=== PATIENT | female | born 1990 | race Caucasian/White ===

== ENCOUNTER 2018-11-26 14:48 | Observation (INO) | payer MEDICAID, SELFPAY ==
[2018-11-26 15:00] VITALS: BP 116/70; PULSE 72; RESP 18; TEMP 36.8; O2SAT 98
--- NOTE | 2018-11-26 15:09 | PCM.HP.STD ---
Problem List (1) Heroin withdrawal Status: Acute History of Present Illness Date of Admission: 11/26/18 Chief Complaint: Abdominal cramps, nausea and vomiting. The patient is a 28 year old F who uses heroin via injection. Last use was at 1900 on November 25. Since then, patient has been having diffuse myalgias, yawning, rhinitis, lacrimation, sore throat, abdominal cramps, nausea and vomiting. Patient requesting treatment for acute heroin withdrawal. She presented through [facility] and had an intake CINA score of 18. Patient had done a program earlier and was clean for period time until her sister went to live with her. The patient's sister used heroin and the patient unfortunately fell back to using heroin again. Patient states that she does share needles on his previous been checked for HIV and hepatitis C that were negative previously. 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 Review of Systems Constitutional: Reports: Chills, Malaise, Weight Change - Patient thinks that she is lost weight but does not know the quantity.. Denies: Anorexia, Fever, Night Sweats Eyes: Denies: Blurred vision, Double vision HEENT: Denies: Head Aches, Sinus Congestion, Sinus Drainage Cardiovascular: Denies: Chest Pain, Palpitations Respiratory: Denies: Cough, Shortness of breath at rest, Sputum production Gastrointestinal: Reports: Abdominal Pain, Diarrhea, Nausea, Vomiting Genitourinary: Denies: Dysuria Gynecological: Reports: - - Menstrual period 1 week ago. Musculoskeletal: Reports: Arm Pain, Leg Pain Skin: Denies: Dryness, Jaundice Neurological: Denies: Blurred vision, Double vision, Focal weakness, Numbness, Tingling Psychiatric: Denies: Anxiety, Depression Hematologic/ Lymphatic: Denies: Easy Bruising, Easy Bleeding, Hx of blood clot VTE Information - Inpt Only VTE Present on Admission: No VTE Mechan Device Prophylaxis: None VTE Pharm Prophylaxis ordered?: No Reason prophylaxis not ordered:: Treatment Not Indicated Patient Problems: Active and Suspected Problems Heroin withdrawal (Acute) - Physical Exam General: Alert, Cooperative, No apparent distress HEENT: Atraumatic, Normocephalic, - - No scleral icterus Oral: Moist Mucosa, No Gingival or Mucosal Lesions/ Ulcerations Neck: No Nodes, Thyroid Normal Size and Texture Lungs: Clear to auscultation, Normal air movement, No rhonchi, No wheeze Cardiovascular: Regular rate, Regular Rhythm, Normal S1, Normal S2, No murmurs Abdomen: Bowel Sounds Present, Soft, Non Tender, Non-Distended, No Hepato-splenomegaly Extremities: No edema, No Calf Tenderness Skin: No rashes, No breakdown, - - Some small injection sites but without any erythema nor any cellulitis. Musculoskeletal: No Tenderness to Palpation of Joints or Extremities, Cachexia, Muscle Wasting Psych/Mental Status: Appropriate, Anxious Assessment/Plan All Active Problems Heroin withdrawal (Acute) 1. Acute heroin withdrawal: Patient had intake CINA of 18. Patient will be initiated on the medical stabilization protocol with buprenorphine taper. The taper will take her through the . After which, patient has a program that she is going to be enrolled in. Patient will have other medications to help with other somatic complaints. I did discuss getting an HIV and hepatitis C tests as she shares needles and she was in agreement to do so. Code Visit Inpatient E&M: 90548 Init Hosp L2
--- NOTE | 2018-11-26 15:14 | HP.PCM_ITS ---
Problem List (1) Heroin withdrawal Status: Acute History of Present Illness Date of Admission: 11/26/18 Chief Complaint: Abdominal cramps, nausea and vomiting. The patient is a 28 year old F who uses heroin via injection. Last use was at 1900 on November 25. Since then, patient has been having diffuse myalgias, yawning, rhinitis, lacrimation, sore throat, abdominal cramps, nausea and vomiting. Patient requesting treatment for acute heroin withdrawal. She presented through [facility] and had an intake CINA score of 18. Patient had done a program earlier and was clean for period time until her sister went to live with her. The patient's sister used heroin and the patient unfortunately fell back to using heroin again. Patient states that she does share needles on his previous been checked for HIV and hepatitis C that were negative previously. 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 Review of Systems Constitutional: Reports: Chills, Malaise, Weight Change - Patient thinks that she is lost weight but does not know the quantity.. Denies: Anorexia, Fever, Night Sweats Eyes: Denies: Blurred vision, Double vision HEENT: Denies: Head Aches, Sinus Congestion, Sinus Drainage Cardiovascular: Denies: Chest Pain, Palpitations Respiratory: Denies: Cough, Shortness of breath at rest, Sputum production Gastrointestinal: Reports: Abdominal Pain, Diarrhea, Nausea, Vomiting Genitourinary: Denies: Dysuria Gynecological: Reports: - - Menstrual period 1 week ago. Musculoskeletal: Reports: Arm Pain, Leg Pain Skin: Denies: Dryness, Jaundice Neurological: Denies: Blurred vision, Double vision, Focal weakness, Numbness, Tingling Psychiatric: Denies: Anxiety, Depression Hematologic/ Lymphatic: Denies: Easy Bruising, Easy Bleeding, Hx of blood clot VTE Information - Inpt Only VTE Present on Admission: No VTE Mechan Device Prophylaxis: None VTE Pharm Prophylaxis ordered?: No Reason prophylaxis not ordered:: Treatment Not Indicated Patient Problems: Active and Suspected Problems Heroin withdrawal (Acute) - Physical Exam General: Alert, Cooperative, No apparent distress HEENT: Atraumatic, Normocephalic, - - No scleral icterus Oral: Moist Mucosa, No Gingival or Mucosal Lesions/ Ulcerations Neck: No Nodes, Thyroid Normal Size and Texture Lungs: Clear to auscultation, Normal air movement, No rhonchi, No wheeze Cardiovascular: Regular rate, Regular Rhythm, Normal S1, Normal S2, No murmurs Abdomen: Bowel Sounds Present, Soft, Non Tender, Non-Distended, No Hepato- splenomegaly Extremities: No edema, No Calf Tenderness Skin: No rashes, No breakdown, - - Some small injection sites but without any erythema nor any cellulitis. Musculoskeletal: No Tenderness to Palpation of Joints or Extremities, Cachexia, Muscle Wasting Psych/Mental Status: Appropriate, Anxious Assessment/Plan All Active Problems Heroin withdrawal (Acute) 1. Acute heroin withdrawal: Patient had intake CINA of 18. Patient will be initiated on the medical stabilization protocol with buprenorphine taper. The taper will take her through the . After which, patient has a program that she is going to be enrolled in. Patient will have other medications to help with other somatic complaints. I did discuss getting an HIV and hepatitis C tests as she shares needles and she was in agreement to do so. Code Visit Inpatient E&M: 10170 Init Hosp L2
[2018-11-26 15:33] LABS: Absolute Lymphocyte Count 1.12 X10^3/ul (0.83-4.51); Absolute Neutrophil Count 6.1 X10^3/uL (2.0-7.7); Basophil# 0.03 X10^3/uL; Basophil% 0.4 % (0-1); Eosinophil# 0.26 X10^3/uL; Eosinophils% 3.2 % (0-5); Hematocrit 47.1 % (37-47); Hemoglobin 14.9 g/dl (12.0-15.0); Lymphocyte # 1.12 X10^3/ul (4.0); Lymphocyte % 13.7 % (19-41); Mean Corp Hgb Conc 31.6 g/gl (32-36); Mean Corpuscular Hgb 30.4 pg (27.0-32.0); Mean Corpuscular Volume 96.1 fL (81-99); Mean Platelet Vol. 11.6 fl (6.2-12.0); Monocyte# 0.67 X10^3/uL; Monocyte% 8.2 % (0-10); Neutrophil % 74.4 % (47-70); Platelet Count 179 K/mm3 (150-450); RBC Distribution Width CV 13.5 % (11.6-14.6); RBC Distribution Width SD 46.9 fl (35.1-43.9); White Blood Count 8.2 K/mm3 (4.4-11.0)
[2018-11-26 15:39] VITALS: BMI 15.4
[2018-11-26 15:41] VITALS: BMI 15.4
[2018-11-26 15:43] LABS: ALB/GLOB Ratio 1.1 RATIO (0.9-2.4); AST(SGOT) 348 U/L (15-37); Alanine Aminotransfer ALT/SGPT 376 U/L (13-56); Albumin, Serum 3.5 g/dL (3.2-5.0); Alkaline Phosphatase 136 U/L (45-117); Anion Gap 5 (5-15); BUN 9 mg/dL (7-18); BUN/Creat Ratio 13.1 RATIO (10-20); Calcium,Total 8.7 mg/dL (8.5-10.1); Chloride 108 mmol/L (98-107); Creatinine, Serum 0.68 mg/dL (0.55-1.02); EST Glomerular Filtration Rate 108 mL/min (>60); Est Glom Filt Rate - Afr Amer 130 mL/min (>60); Estimated Creatinine Clearance 78.67 ml/min; Globulin 3.3 g/dL (2.2-4.2); Glucose 101 mg/dL (74-106); Potassium 4.1 mmol/L (3.5-5.1); Protein, Total 6.8 g/dL (6.4-8.2); Sodium Level 140 mmol/L (136-145)
[2018-11-26 15:44] LABS: POSITIVE COUNT NO; POSITIVE DIFFERENTIAL NO; POSITIVE MORPHOLOGY NO
[2018-11-26 15:50] VITALS: RESP 18
[2018-11-26 15:58] LABS: Amphetamine Urine VISTA NEGATIVE (<1000 ng/mL); Barbiturate Urine VISTA NEGATIVE (< 200 ng/mL); Benzodiazepine Urine VISTA POSITIVE (< 200 ng/mL); Cocaine Urine VISTA NEGATIVE (< 300 ng/mL); Ecstacy Urine VISTA NEGATIVE (< 500 ng/mL); Methadone Urine VISTA NEGATIVE (< 300 ng/mL); PCP Urine VISTA NEGATIVE (< 25 ng/mL); THC Urine VISTA NEGATIVE (< 50 ng/mL); Vista UDS pH Range 7
[2018-11-26 16:04] LABS: Pregnancy, Serum, hCG Quali. NEGATIVE Negative (0-9 Nonpreg)
[2018-11-26] MEDS: Methocarbamol 750 MG Tablet PO (16:24)
[2018-11-26] MEDS: Ondansetron ODT 4 MG Tablet PO (16:24)
[2018-11-26] MEDS: Dicyclomine 10 MG Capsule 20 MG PO (16:24)
[2018-11-26] MEDS: hydrOXYzine PAM 25 MG Capsule 50 MG PO (16:24)
[2018-11-26] MEDS: Buprenorphine HCl 2 MG TAB.SUBL SL ×2 (16:24→23:18)
[2018-11-26 16:52] LABS: HIV - WCH Non-Reactive (Nonreactive)
[2018-11-26 18:20] VITALS: BP 116/58; PULSE 68; RESP 16; TEMP 36.9
[2018-11-26] MEDS: Pramipexole Di-HCl 0.25 MG Tablet PO (20:13)
[2018-11-26] MEDS: Ibuprofen 600 MG Tablet PO (20:13)
[2018-11-26] MEDS: cloNIDine HCl 0.1 MG Tablet PO (20:14)
[2018-11-26 20:26] VITALS: BP 106/45; PULSE 70; RESP 16; TEMP 37
[2018-11-27 02:00] VITALS: BP 96/44; PULSE 72; RESP 16; TEMP 36.8
[2018-11-27] MEDS: Methocarbamol 750 MG Tablet PO ×4 (02:07→22:36)
[2018-11-27] MEDS: Dicyclomine 10 MG Capsule 20 MG PO ×4 (02:07→22:36)
[2018-11-27] MEDS: hydrOXYzine PAM 25 MG Capsule 50 MG PO ×3 (02:08→22:36)
[2018-11-27 06:00] VITALS: BP 96/41; PULSE 65; RESP 16; TEMP 36.8
[2018-11-27] MEDS: Buprenorphine HCl 2 MG TAB.SUBL SL ×3 (06:39→22:32)
[2018-11-27] MEDS: cloNIDine HCl 0.1 MG Tablet PO ×2 (08:00→17:30)
[2018-11-27 08:04] VITALS: BP 95/57; PULSE 83; RESP 16; TEMP 36.6; O2SAT 99
--- NOTE | 2018-11-27 08:47 | PCM.PN.HOSP ---
Patient Problems: Active and Suspected Problems Heroin withdrawal (Acute) Subjective: She is feeling okay, and her myalgias and rhinitis have improved a little bit but she is not quite back to her baseline. Vitals/I&O's: Vital Signs Temp Pulse Resp BP Pulse Ox 97.9 F 83 16 95/57 L 99 11/27/18 08:04 11/27/18 08:04 11/27/18 08:04 11/27/18 08:04 11/27/18 08:04 Oxygen Delivery Method Room Air Weight: 90 lb Body Mass Index (BMI) 15.4 General: Alert, Oriented x3, Cooperative, No apparent distress HEENT: Atraumatic, PERRLA, EOMI, Normocephalic Oral: Dry Mucosa Neck: Supple, No JVD, Trachea Midline Lungs: Clear to auscultation, Normal air movement, No rhonchi, No wheeze, No rales Cardiovascular: Regular rate, Regular Rhythm, Normal S1, Normal S2, No murmurs Abdomen: Soft, Non Tender, Non-Distended, No Hepato-splenomegaly Extremities: No edema, Capillary Refill Less than 3 Seconds Skin: No rashes, No breakdown Neurological: Neuro grossly intact, Sensory exam intact to light touch and pain Psych/Mental Status: Anxious, - - Shaky Laboratory Results 11/26/18 15:18: WBC 8.2, RBC 4.90, Hgb 14.9, Hct 47.1 H, MCV 96.1, MCH 30.4, MCHC 31.6 L, RDW 13.5, RDW Differential 46.9 H, Plt Count 179, MPV 11.6, Immature Gran % (Auto) 0.100, Neut % (Auto) 74.4 H, Lymph % (Auto) 13.7 L, [place] % (Auto) 8.2, Eos % (Auto) 3.2, Baso % (Auto) 0.4, Absolute Neuts (auto) 6.1, Absolute Lymphs (auto) 1.12, Total Counted Not Reportable 11/26/18 15:18: Sodium 140, Potassium 4.1, Chloride 108 H, Carbon Dioxide 27.0, Anion Gap 5, BUN 9, Creatinine 0.68, Estim Creat Clear Calc 78.67, Est GFR (MDRD) Af Amer 130, Est GFR (MDRD) Non-Af 108, BUN/Creatinine Ratio 13.1, Glucose 101, Calcium 8.7, Total Bilirubin 0.50, AST 348 H, ALT 376 H, Alkaline Phosphatase 136 H, Total Protein 6.8, Albumin 3.5, Globulin 3.3, Albumin/Globulin Ratio 1.1 11/26/18 15:18: Serum , Qual NEGATIVE 11/26/18 15:18: Hepatitis C Ab (EIA) Pending 11/26/18 15:18: HIV 1&2 Antibody Non-Reactive 11/26/18 15:30: Urine Opiates Screen POSITIVE H, Urine Methadone Screen NEGATIVE, Ur Barbiturates Screen NEGATIVE, Ur Phencyclidine Scrn NEGATIVE, Ur Amphetamines Screen NEGATIVE, U Methamphetamin-MDMA NEGATIVE, U Benzodiazepines Scrn POSITIVE H, Urine Cocaine Screen NEGATIVE, U Cannabinoids Screen NEGATIVE, Ur Drug Screen Comment Current Medications Acetaminophen (Tylenol) 500 mg PO Q4H PRN PRN PRN Reason: Temp > 100.4 F Buprenorphine HCl (Buprenorphine Hcl) 4 mg SL Q8H KEATON; Taper Stop: 11/29/18 19:29 Last Admin: 11/27/18 06:39 Dose: 4 mg Clonidine (Catapres) 0.1 mg PO Q2H PRN PRN PRN Reason: Hot/Cold Sweats or Anxiety Last Admin: 11/27/18 08:00 Dose: 0.1 mg Dicyclomine HCl (Bentyl) 20 mg PO Q6H PRN PRN PRN Reason: Abdomnial Discomfort Last Admin: 11/27/18 08:00 Dose: 20 mg Hydroxyzine Pamoate (Vistaril Pamoate Capsule) 50 mg PO Q6H PRN PRN PRN Reason: Mild Anxiety Last Admin: 11/27/18 02:08 Dose: 50 mg Sodium Chloride () 250 mls @ 15 mls/hr IV .[id number] PRN PRN Reason: SALINE FLUSH Ibuprofen (Motrin) 600 mg PO Q8H PRN PRN PRN Reason: Mild-Moderate Pain (1-5/10) Last Admin: 11/26/18 20:13 Dose: 600 mg Loperamide HCl (Imodium) 2 - 4 mg PO UD PRN PRN Reason: LOOSE STOOLS Methocarbamol (Methocarbamol) 750 mg PO Q6H PRN PRN PRN Reason: Muscle Aches Last Admin: 11/27/18 08:00 Dose: 750 mg Nicotine (Nicoderm Cq (Pbkc)) 21 mg TRANSDERM. DAILY KEATON Last Admin: 11/26/18 16:23 Dose: 21 mg Ondansetron HCl (Zofran Odt) 4 mg PO Q6H PRN PRN PRN Reason: NAUSEA Last Admin: 11/26/18 16:24 Dose: 4 mg Pramipexole Dihydrochloride (Mirapex) 0.25 mg PO Q12H PRN PRN PRN Reason: Restless Legs Last Admin: 11/26/18 20:13 Dose: 0.25 mg Sodium Chloride () 5 - 15 ml IV UD PRN PRN Reason: SALINE FLUSH Medical Necessity - Tobacco Use Smoking Status: Light Smoker (<10/day) Tobacco Use: Cigarettes Assessment/Plan All Active Problems Heroin withdrawal (Acute) 1. Acute heroin withdrawal -On admission her CINA was 18 -Tinea with the [facility] protocol for heroin withdrawal -She is from [place] and will be going to an outpatient program for Vivitrol -HIV is negative and hep C tests are pending since she shares needles DVT: Ambulation Code Visit Inpatient E&M: 51710 Subs Hosp L2
[2018-11-27] MEDS: Ibuprofen 600 MG Tablet PO (13:24)
[2018-11-27 13:29] VITALS: BP 86/44; PULSE 63; RESP 16; TEMP 36.9
[2018-11-27 17:37] VITALS: BP 101/51; PULSE 53; RESP 16; TEMP 36.4
[2018-11-27 22:30] VITALS: BP 99/49; PULSE 57; RESP 14; TEMP 36.9
[2018-11-27] MEDS: Ondansetron ODT 4 MG Tablet PO (22:36)
[2018-11-27] MEDS: Pramipexole Di-HCl 0.25 MG Tablet PO (22:36)
[2018-11-28 06:27] VITALS: BP 102/51; PULSE 56; RESP 14; TEMP 36.7
[2018-11-28] MEDS: Methocarbamol 750 MG Tablet PO ×3 (06:29→20:31)
[2018-11-28] MEDS: Dicyclomine 10 MG Capsule 20 MG PO ×3 (06:29→20:31)
[2018-11-28] MEDS: Ondansetron ODT 4 MG Tablet PO (06:29)
[2018-11-28] MEDS: hydrOXYzine PAM 25 MG Capsule 50 MG PO ×3 (06:29→20:31)
[2018-11-28] MEDS: Buprenorphine HCl 2 MG TAB.SUBL SL ×2 (06:30→20:27)
[2018-11-28] MEDS: Ibuprofen 600 MG Tablet PO ×2 (08:10→15:19)
[2018-11-28 08:15] VITALS: BP 87/48; PULSE 51; RESP 16; TEMP 36.4; O2SAT 100
--- NOTE | 2018-11-28 08:23 | PN_ITS ---
Patient Problems: Active and Suspected Problems Heroin withdrawal (Acute) Subjective: Doing okay though she is still having difficulty sleeping and did not sleep last night. Vitals/I&O's: Vital Signs Temp Pulse Resp BP Pulse Ox 97.5 F L 51 L 16 87/48 L 100 11/28/18 08:15 11/28/18 08:15 11/28/18 08:15 11/28/18 08:15 11/28/18 08:15 Oxygen Delivery Method Room Air Weight: 89 lb 15.989 oz Body Mass Index (BMI) 15.4 General: Alert, Oriented x3, Cooperative, No apparent distress HEENT: Atraumatic, PERRLA, EOMI, Normocephalic Oral: Dry Mucosa Neck: Supple, No JVD, Trachea Midline Lungs: Clear to auscultation, Normal air movement, No rhonchi, No wheeze, No rales Cardiovascular: Regular rate, Regular Rhythm, Normal S1, Normal S2, No murmurs Abdomen: Soft, Non Tender, Non-Distended, No Hepato-splenomegaly Extremities: No edema, Capillary Refill Less than 3 Seconds Skin: No rashes, No breakdown Neurological: Neuro grossly intact, Sensory exam intact to light touch and pain Psych/Mental Status: Anxious, - - Shaky Current Medications Acetaminophen (Tylenol) 500 mg PO Q4H PRN PRN PRN Reason: Temp > 100.4 F Buprenorphine HCl (Buprenorphine Hcl) 2 mg SL Q12H KEATON; Taper Stop: 11/29/18 19:29 Last Admin: 11/28/18 06:30 Dose: 2 mg Clonidine (Catapres) 0.1 mg PO Q2H PRN PRN PRN Reason: Hot/Cold Sweats or Anxiety Last Admin: 11/27/18 17:30 Dose: 0.1 mg Dicyclomine HCl (Bentyl) 20 mg PO Q6H PRN PRN PRN Reason: Abdomnial Discomfort Last Admin: 11/28/18 06:29 Dose: 20 mg Hydroxyzine Pamoate (Vistaril Pamoate Capsule) 50 mg PO Q6H PRN PRN PRN Reason: Mild Anxiety Last Admin: 11/28/18 06:29 Dose: 50 mg Sodium Chloride () 250 mls @ 15 mls/hr IV .[id number] PRN PRN Reason: SALINE FLUSH Ibuprofen (Motrin) 600 mg PO Q8H PRN PRN PRN Reason: Mild-Moderate Pain (1-5/10) Last Admin: 11/28/18 08:10 Dose: 600 mg Loperamide HCl (Imodium) 2 - 4 mg PO UD PRN PRN Reason: LOOSE STOOLS Methocarbamol (Methocarbamol) 750 mg PO Q6H PRN PRN PRN Reason: Muscle Aches Last Admin: 11/28/18 06:29 Dose: 750 mg Nicotine (Nicoderm Cq (Pbkc)) 21 mg TRANSDERM. DAILY KEATON Last Admin: 11/28/18 08:11 Dose: 21 mg Nutritional Formula (Lactose Free) (Ensure Enlive) 120 ml PO 4X/DAY KEATON Last Admin: 11/28/18 08:10 Dose: 120 ml Ondansetron HCl (Zofran Odt) 4 mg PO Q6H PRN PRN PRN Reason: NAUSEA Last Admin: 11/28/18 06:29 Dose: 4 mg Pramipexole Dihydrochloride (Mirapex) 0.25 mg PO Q12H PRN PRN PRN Reason: Restless Legs Last Admin: 11/27/18 22:36 Dose: 0.25 mg Sodium Chloride () 5 - 15 ml IV UD PRN PRN Reason: SALINE FLUSH Medical Necessity - Tobacco Use Smoking Status: Light Smoker (<10/day) Tobacco Use: Cigarettes Assessment/Plan All Active Problems Heroin withdrawal (Acute) 1. Acute heroin withdrawal -On admission her CINA was 18 -Continue with the [facility] protocol for heroin withdrawal -She is from [place] and will be going to an outpatient program for Vivitrol -HIV is negative and hep C tests are pending since she shares needles -We will provide melatonin as a sleep aid this evening DVT: Ambulation Code Visit Inpatient E&M: 25073 Subs Hosp L2
[2018-11-28 12:18] VITALS: BP 100/48; PULSE 58; RESP 16; TEMP 36.8; O2SAT 100
[2018-11-28] MEDS: Pramipexole Di-HCl 0.25 MG Tablet PO (15:19)
[2018-11-28 15:23] VITALS: BP 98/54; PULSE 55; RESP 16; TEMP 36.6
[2018-11-28 20:25] VITALS: BP 117/51; PULSE 81; RESP 14; TEMP 36.7
[2018-11-28] MEDS: Acetaminophen 500 MG Tablet PO (20:31)
[2018-11-28] MEDS: cloNIDine HCl 0.1 MG Tablet PO (20:31)
[2018-11-28] MEDS: MELATONIN 10 MG TABLET PO (20:32)
[2018-11-29 06:29] VITALS: BP 96/51; PULSE 51; RESP 14; TEMP 36.7
[2018-11-29] MEDS: Buprenorphine HCl 2 MG TAB.SUBL SL (06:31)
[2018-11-29] MEDS: Ibuprofen 600 MG Tablet PO (06:31)
[2018-11-29] MEDS: Dicyclomine 10 MG Capsule 20 MG PO (06:32)
[2018-11-29] MEDS: hydrOXYzine PAM 25 MG Capsule 50 MG PO (06:32)
[2018-11-29] MEDS: Methocarbamol 750 MG Tablet PO (06:32)
--- NOTE | 2018-11-29 07:43 | DCINST_ITS ---
- Discharge Diagnoses Current Active Problems: Current Active and Chronic Problems Heroin withdrawal (Acute) You will use the following diet at home:: No restrictions Discharge Activity: May not drive while taking narcotic pain medications. Allergies/Adverse Reactions: Allergies trazodone Adverse Reaction (Verified 11/26/18 15:06) Other Medications to take at Discharge NK 11/26/18 Primary Care Physician: Care Physician,No Primary [Primary Care Provider] - Test Results: Test results from this visit will be discussed in further detail at your follow- up appointment, if applicable. Proposed Discharge Date: 11/29/18
--- NOTE | 2018-11-29 07:46 | DS.PCM_ITS ---
Discharge Date and Diagnosis - Problem List Patient Problems: Active and Suspected Problems Heroin withdrawal (Acute) Date of Admission: 11/26/18 Date of Discharge: 11/29/18 - Primary Discharge Diagnosis Active and Suspected Problems Heroin withdrawal (Acute) Hospital Course and Treatment Summary of Care Provided: The patient is a 28 year old F with past medical history significant for heroin use who presented with acute opiate withdrawal. Patient was admitted to regular nursing floor managed with the [facility] medical stabilization protocol with Subutex as well as symptomatic treatment. Patient condition did improve after 3 days of hospitalization. She was discharged home. She has plans to follow-up at the [facility] for initiation of Vivitrol Patient Problems: Active and Suspected Problems Heroin withdrawal (Acute) - Physical Exam General: Alert HEENT: Atraumatic Neck: Supple Lungs: Diminished Cardiovascular: Regular rate, Regular Rhythm Neurological: Neuro grossly intact Vital Signs Temp Pulse Resp BP Pulse Ox 98.0 F 51 L 14 96/51 L 100 11/29/18 06:29 11/29/18 06:29 11/29/18 06:29 11/29/18 06:29 11/28/18 12:18 Oxygen Delivery Method Room Air Weight: 40.823 kg Body Mass Index (BMI) 15.4 Discharge Activity: May not drive while taking narcotic pain medications. Home Medications: Medications to take at Discharge NK 11/26/18 Primary Care Physician: Care Physician,No Primary [Primary Care Provider] - Disposition: Home Minutes spent on discharge:: 32 Patient Condition:: Stable Medical Necessity - Tobacco Use Smoking Status: Light Smoker (<10/day) Tobacco Use: Cigarettes Meaningful Use Info Meaningful Use Diagnoses (Choose all that apply): None applicable Code Visit Inpatient E&M: 33948 Disch Hosp
[2018-11-29 09:04] LABS: Hep C Antibodies 2.5 s/co ratio (0.0-0.9)
== END 2018-11-29 12:06 | disposition home or self-care (01) | DRG 773 ==
PROVIDERS: Visit Provider Internal Medicine
DX: F11.23 Opioid dependence with withdrawal (principal); F17.210 Nicotine dependence, cigarettes, uncomplicated
CPT/HCPCS: 36415; 80053; 80307; 84703; 85025; 86703; 86803; 99218; G0378; G0379